=== PATIENT | male | born 1965 | race Caucasian/White ===

== ENCOUNTER 2021-03-27 04:13 | Day surgery (SDC) | payer OTHER ==
[2021-03-23 09:02] VITALS: BMI 28.3
[2021-03-27] MEDS ORDERED: fentaNYL CITRATE 250 MCG/5 ML VIAL ONE (10:49)
[2021-03-27] MEDS ORDERED: MIDAZOLAM HCL 2 MG/2 ML SINGLE DOSE VIAL ONE ×3 (10:50→12:01)
[2021-03-27] MEDS ORDERED: PROPOFOL 20 ML ONE ×3 (10:50→12:37)
[2021-03-27] MEDS ORDERED: ONDANSETRON 4 MG/2 ML VIAL IVPUSH PRN (11:29)
[2021-03-27] MEDS ORDERED: VANCOMYCIN 1,000 MG VIAL (RESTRICTED TO ID ONLY) ONE ×2 (11:34→12:42)
[2021-03-27] MEDS ORDERED: GENTAMICIN SO4 80 MG/2 ML VIAL ONE ×3 (11:35→12:42)
[2021-03-27] MEDS ORDERED: ceFAZolin SODIUM 1 GM VIAL ONE (12:00)
[2021-03-27] MEDS ORDERED: BACITRACIN 15 GM TUBE TOPICAL OINTMENT ONE (13:02)
[2021-03-27] MEDS ORDERED: MEPERIDINE HCL 25 MG/ML VIAL ONE (13:30)
[2021-03-27] MEDS: MEPERIDINE HCL 25 MG/ML VIAL IVPUSH ONE ×2 (13:40→18:46)
[2021-03-27] MEDS: LACTATED RINGERS SOLUTION 1,000 ML IV SCH (15:25)
[2021-03-27] MEDS: oxyCODONE HCL 5 MG TABLET PO PRN (17:10)
[2021-03-27] MEDS: GENTAMICIN 80 MG PREMIXED IVPB 80 MG/100 ML BAG IVPB SCH (17:17)
[2021-03-27] MEDS ORDERED: PT OWN MED DRAWER 7, Y5N ONE (17:53)
[2021-03-27] MEDS: VANCOMYCIN 1 GM in D5W (PRE-DOCKED) 1,000 MG/250 ML IVPB SCH (18:17)
[2021-03-28] MEDS ORDERED: PT OWN MED DRAWER 7, Y5N ONE ×2 (00:24→10:39)
[2021-03-28] MEDS: GENTAMICIN 80 MG PREMIXED IVPB 80 MG/100 ML BAG IVPB SCH ×2 (01:18→12:12)
[2021-03-28] MEDS: VANCOMYCIN 1 GM in D5W (PRE-DOCKED) 1,000 MG/250 ML IVPB SCH (05:34)
[2021-03-28] MEDS: oxyCODONE HCL 5 MG TABLET PO PRN (10:40)
[2021-03-28] MEDS: LACTATED RINGERS SOLUTION 1,000 ML IV SCH (11:34)
[2021-03-28 13:54] VITALS: PULSE 113; TEMP 99.8
[2021-03-28 13:56] VITALS: BP 124/69
== END 2021-03-28 16:03 | disposition home or self-care (01) ==
LOC: JASUSAT 04:13 → JASU-SURG 04:13 → J6S 15:37 → JASUSAT 03-28 16:03
PROVIDERS: ATTEND Urology
PROC: 0VUS0JZ Supplement Penis with Synthetic Substitute, Open Approach (ICD-10-PCS; principal; 2021-03-27 11:00)
DX: N52.9 Male erectile dysfunction, unspecified (principal)
CPT/HCPCS: 54405; C1813; 94760